=== PATIENT | male | born 1955 | race Caucasian/White ===

== ENCOUNTER 2018-06-15 06:23 | Emergency (ER) | payer OTHER ==
[2018-06-15 06:32] VITALS: RESP 18
[2018-06-15] MEDS ORDERED: METOCLOPRAMIDE 5 MG/ML 2 ML VIAL IVP STA (07:06)
[2018-06-15] MEDS ORDERED: diphenhydrAMINE 50 MG/ML 1 ML VIAL IVP STA (07:06)
[2018-06-15] MEDS ORDERED: SODIUM CHLORIDE 0.9% 500 ML 500 ML IV ONE (07:06)
[2018-06-15] MEDS ORDERED: ACETAMINOPHEN IV (For NPO) 1,000 MG in EMPTY BAG 1 BAG IVPB STA (07:06)
--- NOTE | 2018-06-15 07:09 | ED ---
Headache HPI - General Chief Complaint: Headache Stated Complaint: Headache/Nausea Time Seen by Provider: 06/15/18 07:00 Source: patient, family, RN notes reviewed Mode of arrival: ambulatory Limitations: no limitations - History of Present Illness Initial Comments: This a 62-year-old male presents emergency Department chief complaint headache and nausea. Patient states that the headache started after he came home from work yesterday around 5:30. Patient states that on watch the football game states that he did not feel well had a headache she went to lay down and felt like he was and have panic attack. Patient states he has not had a headache like this in several years as he states when he had headaches like this before is because he was diabetic. Patient states he is taking his medications as directed. He did take his morning blood pressure medications. Patient states he tried for Aleve with no relief of his symptoms. Patient states that the pressure and pain is from the midline to the right side of his head. Patient states that this morning the worse but not the worse headache of his life. Patient denies any vertigo states he is sensitive to light and sound. Patient said no vomiting only nausea. Denies any focal weakness. Patient denies any focal weakness. Patient denies any recent URI symptoms no fever no chills no neck pain or neck stiffness. - Related Data Home Medications Medication Instructions Recorded Confirmed Aspirin EC [Ecotrin Low Dose] 81 mg PO DAILY 06/15/18 06/15/18 Atorvastatin [Lipitor] 40 mg PO HS 06/15/18 06/15/18 It Works Relief 1 tab PO DAILY 06/15/18 06/15/18 Lisinopril [Prinivil] 20 mg PO Q12H 06/15/18 06/15/18 Metoprolol Tartrate [Lopressor] 100 mg PO BID 06/15/18 06/15/18 amLODIPine [Norvasc] 5 mg PO DAILY 06/15/18 06/15/18 metFORMIN HCL [metFORMIN HCL ER] 1,000 mg PO DAILY 06/15/18 06/15/18 Allergies Allergy/AdvReac Type Severity Reaction Status Date / Time No Known Allergies Allergy Verified 06/15/18 08:11 Review of Systems ROS Statement: Those systems with pertinent positive or pertinent negative responses have been documented in the HPI. ROS Other: All systems not noted in ROS Statement are negative. Past Medical History Past Medical History: Diabetes Mellitus, Hyperlipidemia, Hypertension History of Any Multi-Drug Resistant Organisms: None Reported Past Surgical History: Heart Catheterization With Stent, Orthopedic Surgery Additional Past Surgical History / Comment(s): Open heart Surgery in 2016 Past Psychological History: No Psychological Hx Reported Smoking Status: Former smoker Past Alcohol Use History: None Reported Past Drug Use History: None Reported General Exam Limitations: no limitations General appearance: alert, in no apparent distress Head exam: Present: atraumatic, normocephalic, normal inspection Eye exam: Present: normal appearance, PERRL, EOMI. Absent: scleral icterus, conjunctival injection, periorbital swelling ENT exam: Present: normal exam, normal oropharynx, mucous membranes moist, TM's normal bilaterally, normal external ear exam Neck exam: Present: normal inspection, full ROM. Absent: tenderness, meningismus, lymphadenopathy Respiratory exam: Present: normal lung sounds bilaterally. Absent: respiratory distress, wheezes, rales, rhonchi, stridor Cardiovascular Exam: Present: regular rate, normal rhythm, normal heart sounds. Absent: systolic murmur, diastolic murmur, rubs, gallop, clicks Neurological exam: Present: alert, oriented X3, CN II-XII intact, motor sensory deficit, other (Finger to nose intact bilaterally without over shooting). Absent: reflexes normal Skin exam: Present: warm, dry, intact, normal color. Absent: rash Course Vital Signs 06/15/18 06/15/18 06:26 08:15 Temperature 98.2 F Pulse Rate 68 70 Respiratory 18 18 Rate Blood Pressure 198/104 150/87 O2 Sat by Pulse 98 97 Oximetry Medical Decision Making - Medical Decision Making 62-year-old male presents emergency department for headache. Patient states it was not the worse headache of his life but was a terrible headache. Patient had lab work, CT without contrast and was given IV fluids, Benadryl, Reglan and also met. I did order a CT angiogram of the [place] patient had a panic attack while laying down and refuses to perform this study. I did explain why I wanted him this study to the patient and he continues to refuse and states that he is completely symptom-free that his headache, nausea have resolved. He has a normal neuro exam. Patient will be discharged at this time he is to return if he develops any headache or any other new or worsening concerning symptoms. - Lab Data Result diagrams: 06/15/18 08:02 06/15/18 08:02 Lab Results 06/15/18 06/15/18 Range/Units 08:02 08:02 WBC 11.4 H (3.8-10.6) k/uL RBC 4.98 (4.30-5.90) m/uL Hgb 15.2 (13.0-17.5) gm/dL Hct 44.2 (39.0-53.0) % MCV 88.7 (80.0-100.0) fL MCH 30.6 (25.0-35.0) pg MCHC 34.5 (31.0-37.0) g/dL RDW 14.0 (11.5-15.5) % Plt Count 253 (150-450) k/uL Neutrophils % 85 % Lymphocytes % 8 % Monocytes % 5 % Eosinophils % 1 % Basophils % 0 % Neutrophils # 9.7 H (1.3-7.7) k/uL Lymphocytes # 0.9 L (1.0-4.8) k/uL Monocytes # 0.6 (0-1.0) k/uL Eosinophils # 0.1 (0-0.7) k/uL Basophils # 0.0 (0-0.2) k/uL Hyperchromasia Slight Sodium 139 (137-145) mmol/L Potassium 4.3 (3.5-5.1) mmol/L Chloride 104 (98-107) mmol/L Carbon Dioxide 23 (22-30) mmol/L Anion Gap 12 mmol/L BUN 19 (9-20) mg/dL Creatinine 0.97 (0.66-1.25) mg/dL Est GFR (CKD-EPI)AfAm >90 (>60 ml/min/1.73 sqM) Est GFR (CKD-EPI)NonAf 84 (>60 ml/min/1.73 sqM) Glucose 235 H (74-99) mg/dL Calcium 9.6 (8.4-10.2) mg/dL Total Bilirubin 1.6 H (0.2-1.3) mg/dL AST 31 (17-59) U/L ALT 41 (21-72) U/L Alkaline Phosphatase 97 (38-126) U/L Total Protein 7.5 (6.3-8.2) g/dL Albumin 4.5 (3.5-5.0) g/dL Disposition Clinical Impression: Headache Disposition: HOME SELF-CARE Condition: Stable Instructions: Acute Headache (ED) Additional Instructions: Please return to the Emergency Department if symptoms worsen or any other concerns. Is patient prescribed a controlled substance at d/c from ED?: No Referrals: Dao Beaulieu DO [Primary Care Provider] - 1-2 days Time of Disposition: 09:48
--- NOTE | 2018-06-15 07:42 | CT ---
EXAMINATION TYPE: CT brain wo con DATE OF EXAM: 06/15/2018 HISTORY: Pt has painful headache and nausea since yesterday evening. CT DLP: 1237.4 mGycm. Automated Exposure Control for Dose Reduction was Utilized. TECHNIQUE: CT scan of the head is performed without contrast. COMPARISON: None. FINDINGS: There is no acute intracranial hemorrhage or midline shift identified. There is diffuse v entricular and sulcal prominence consistent with diffuse age-related cerebral atrophy. There is low- attenuation in the periventricular white matter consistent with chronic small vessel ischemic change. The globes are intact and the visualized sinuses are clear. IMPRESSION: No acute intracranial hemorrhage or midline shift. There is mild diffuse age-related ce rebral atrophy and chronic small vessel ischemic change noted.
[2018-06-15 08:31] LABS: ALT 41 U/L (21-72); AST 31 U/L (17-59); Albumin 4.5 g/dL (3.5-5.0); Alkaline Phosphatase 97 U/L (38-126); Anion Gap 12 mmol/L; Blood Urea Nitrogen 19 mg/dL (9-20); Calcium 9.6 mg/dL (8.4-10.2); Carbon Dioxide 23 mmol/L (22-30); Chloride 104 mmol/L (98-107); Glucose 235 mg/dL (74-99); Potassium 4.3 mmol/L (3.5-5.1); Sodium 139 mmol/L (137-145); Total Bilirubin 1.6 mg/dL (0.2-1.3); Total Protein 7.5 g/dL (6.3-8.2)
[2018-06-15 08:33] LABS: Basophils % (A) 0 %; Eosinophils # (A) 0.1 k/uL (0-0.7); Eosinophils % (A) 1 %; HCT 44.2 % (39.0-53.0); HGB 15.2 gm/dL (13.0-17.5); Hyperchromasia Slight; Lymphocytes # (A) 0.9 k/uL (1.0-4.8); Lymphocytes % (A) 8 %; MCH 30.6 pg (25.0-35.0); MCHC 34.5 g/dL (31.0-37.0); MCV 88.7 fL (80.0-100.0); Mean Platelet Volume 6.5; Monocytes # (A) 0.6 k/uL (0-1.0); Monocytes % (A) 5 %; Neutrophils # (A) 9.7 k/uL (1.3-7.7); Neutrophils % (A) 85 %; Platelet Count 253 k/uL (150-450); RBC 4.98 m/uL (4.30-5.90); WBC 11.4 k/uL (3.8-10.6)
[2018-06-15] MEDS ORDERED: LORazepam 2 MG/ML INJ IV STA (09:02)
[2018-06-15 10:32] VITALS: BP 136/85; PULSE 72; TEMP 98.6
== END 2018-06-15 10:32 | disposition home or self-care (01) ==
LOC: EC 06:23
DX: R51 Headache (principal); R11.0 Nausea; H83.3X9 Noise effects on inner ear, unspecified ear; E78.5 Hyperlipidemia, unspecified; I10 Essential (primary) hypertension; E11.9 Type 2 diabetes mellitus without complications; Z87.891 Personal history of nicotine dependence; Z79.82 Long term (current) use of aspirin; Z79.84 Long term (current) use of oral hypoglycemic drugs; Z79.899 Other long term (current) drug therapy; Z95.818 Presence of other cardiac implants and grafts
CPT/HCPCS: 36415; 80053; 85025; 70450; 99284; 96374; 96375 ×3; 96361; J2060; J1200; J2765; J0131